=== PATIENT | female | born 1975 | race Hispanic/Latino ===

== ENCOUNTER 2017-06-19 21:28 | Emergency (ER) | payer SELFPAY ==
[2017-06-19] MEDS ORDERED: Acetaminophen 500 MG TAB ONE (21:46)
[2017-06-19 21:52] LABS: #Basophils 0.1 thou/uL (0.0-0.2); #Eosinphils 0.1 thou/uL (0.0-0.7); #Lymphocytes 0.8 thou/uL (1.20-3.40); #Monocytes 0.4 thou/uL (0.11-0.59); #Neutrophils 5.8 thou/uL (1.40-6.50); %Basophils 1.8 % (0.0-1.0); %Eosinophils 1.1 % (0.0-10.0); %Lymphocytes 11.2 % (21.0-51.0); %Monocytes 5.9 % (0.0-10.0); Hematocrit 39.2 % (36.0-47.0); Mean Platelet Volume 7.7 fL (7.4-10.4); White Blood Cell (WBC) Count 7.3 thou/uL (4.8-10.8)
[2017-06-19 22:04] LABS: Bilirubin Negative (Negative); Blood, Urine Large (Negative); Glucose, Urine (Dipstick) Negative (Negative); Ketone, Urine Negative (Negative); Nitrite Negative (Negative); Protein, Urine (Dipstick) Negative (Neg-Trace); Urobilinogen 0.2 mg/dL (0.2-1.0)
[2017-06-19 22:05] LABS: ALT (SGPT) 13 U/L (8-55); AST (SGOT) 17 U/L (5-34); Alkaline Phosphatase 71 U/L (40-150); Anion Gap 13 mmol/L (10-20); BUN (Urea Nitrogen) 12 mg/dL (7.0-18.7); Bilirubin, Total 0.3 mg/dL (0.2-1.2); Calc. Creatinine Clearance 0 mL/min (70-130); Calcium 9.2 mg/dL (7.8-10.44); Carbon Dioxide 21 mmol/L (22-29); Chloride 106 mmol/L (98-107); Estimated GFR-MDRD 77; Protein, Total 7.3 g/dL (6.0-8.3)
[2017-06-19 22:14] LABS: WBC/HPF 0-3 HPF (0-3)
[2017-06-19 22:15] LABS: Bacteria/HPF 1+ HPF (None Seen)
[2017-06-19] MEDS ORDERED: Oseltamivir 75 MG CAP ONE (22:36)
[2017-06-19] MEDS ORDERED: Ketorolac Tromethamine 30 MG/ML VIAL ONE (22:36)
[2017-06-19] MEDS ORDERED: Diazepam 5 MG TAB ONE (23:16)
== END 2017-06-19 23:25 | disposition home or self-care (01) ==
LOC: SCSER 21:28
DX: J11.1 Influenza due to unidentified influenza virus with other respiratory manifestations (principal)
CPT/HCPCS: 80053; 81003; 81015; 85025; 87040; 96361; 96374; J1885